=== PATIENT | male | born 1995 | race Caucasian/White ===

== ENCOUNTER 2021-12-25 19:34 | Emergency (ER) | payer MEDICAID ==
[~2021-12-25] VITALS: Ht 170.2 cm; Wt 72.7 kg
[2021-12-25 19:38] VITALS: BP 141/86
[2021-12-25] MEDS ORDERED: LORazepam 1 MG TABLET PO ONE (20:30)
== END 2021-12-25 21:40 | disposition home or self-care (01) ==
LOC: EMS 19:41
DX: F41.9 Anxiety disorder, unspecified (principal); F12.90 Cannabis use, unspecified, uncomplicated; Z88.0 Allergy status to penicillin
CPT/HCPCS: 99283